=== PATIENT | female | born 1960 | race Caucasian/White ===

== ENCOUNTER 2020-05-29 08:52 | Outpatient (CLI) | payer OTHER, SELFPAY ==
--- NOTE | 2020-05-29 08:59 | ECG_ITS ---
Measurements Intervals [place] Rate: 68 P: 14 [place]: 156 QRS: 5 QRSD: 86 T: 43 QT: 417 QTc: 445 Interpretive Statements SINUS RHYTHM POOR R WAVE PROGRESSION, ANTERIOR LEADS BASELINE ARTIFACT- I, III, AVR, AVL, AVF BORDERLINE ECG Electronically Signed On 05-29-2020 10:48:36 [employer] by Evin Ball D.O.
[2020-05-29 09:54] LABS: Anion Gap 4 mmol/L (8-16); Blood Urea Nitrogen 16 mg/dL (7-17); Calcium 9.3 mg/dL (8.4-10.2); Carbon Dioxide 33 mmol/L (22-30); Chloride 101 mmol/L (98-107); Estimated Glomerular Filt Rate > 60; Glucose 99 mg/dL (65-105); Potassium 4.6 mmol/L (3.4-5.0); Sodium 138 mmol/L (137-145)
== END 2020-05-29 08:53 | disposition home or self-care (01) ==
PROVIDERS: Anesthesiology; PCP Nurse Practitioner Family; Visit Provider Orthopaedic Surgery
DX: Z01.818 Encounter for other preprocedural examination (principal); I10 Essential (primary) hypertension; Z79.899 Other long term (current) drug therapy; R94.31 Abnormal electrocardiogram [ECG] [EKG]
CPT/HCPCS: 36415; 80048; 93005

== ENCOUNTER 2020-06-03 00:53 | Outpatient (CLI) | payer OTHER, SELFPAY ==
[2020-06-03 19:31] LABS: SARS-CoV-2 RNA PCR Negative
== END 2020-06-03 00:54 | disposition home or self-care (01) ==
LOC: ANHCOVIDDT 00:54
PROVIDERS: Visit Provider Orthopaedic Surgery
DX: Z01.818 Encounter for other preprocedural examination (principal); Z20.828 Contact with and (suspected) exposure to other viral communicable diseases
CPT/HCPCS: 87635; C9803; U0003

== ENCOUNTER 2020-06-05 00:37 | Day surgery (SDC) | payer OTHER, SELFPAY ==
[2020-05-25 14:41] VITALS: BMI 31.2
[2020-06-05] VITALS (7 sets, daily range): BP systolic 121–145; BP diastolic 61–68; PULSE 78–104; RESP 16–19; TEMP 36.2–36.7; O2SAT 96–100; BMI 32.3
--- NOTE | 2020-06-05 07:14 | WPDANESEPPF ---
Anes - Initial Pre Proc Eval Procedure: Operation Date: 06/05/20 09:00 Proposed Procedures p Right Rotator Cuff Repair Acromioplasty, Distal Clavicle Excision - Moi De Santiago MD Date/Time: 06/05/20 07:14 Surgeon: Moi De Santiago MD Pre Op Diagnosis: Right Rotator Cuff Tear AC Arthritis Patient Data Age: 60 Gender: F Height: 1.55 m Weight: 75 kg Allergies Allergy/AdvReac Type Severity Reaction Status Date / Time No Known Allergies Allergy Verified 06/05/20 07:41 Home Medications Medication Instructions Recorded Confirmed Type biotin 300 mcg tablet 300 mcg PO DAILY 10/14/19 06/05/20 History escitalopram oxalate 10 mg tablet 10 mg PO DAILY 10/14/19 06/05/20 History estradiol 1 mg tablet 1 mg PO DAILY 10/14/19 06/05/20 History hydrochlorothiazide 25 mg tablet 25 mg PO DAILY 10/14/19 06/05/20 History omega-3 fatty acids 1,000 mg 1,000 mg PO DAILY 10/14/19 06/05/20 History capsule calcium carbonate 500 mg calcium 500 mg PO DAILY 05/23/20 06/05/20 History (1,250 mg) tablet tnmmtkkqnthy-dntkjklg-sjjpfu tablet 1 tablet PO DAILY 05/23/20 06/05/20 History Patient hx anesthesia problems: none Family hx anesthesia problems: none PMFSH Past Medical History Medical History (Updated 05/23/20 @ 15:52 by Moi De Santiago MD) Anxiety Dyslipidemia Surgical History Surgical History H/O: hysterectomy History of appendectomy History of cholecystectomy Family History Family History Mother Colon cancer Father Heart disease Malignant neoplasm of prostate Bone cancer Social History Social History Smoking packs per day: 0.5 Smoking cigarettes per day: 10.0 Years smoked: 5 Smoking pack-years: 2.50 Smoking status: Former smoker Tobacco type: cigarettes Smoking end date: 05/25/85 Alcohol intake: never Living arrangements: with family Additional living arrangements comments: [place] Additional occupation/education comments: [employer] [place] Gender identity (if verbalized by the patient): Female Spiritual care concerns: No Anes - Eval Final PreProcedure Day of Procedure 06/05/20 07:14 Patient weight: obese Heart: regular rate and rhythm Lungs: clear to auscultation and normal air movement Airway: Mallampati scale class II Neurological: alert and oriented Last oral intake: >/= 8 hours ASA classification: II Emergent: no Anesthetic plan: proceed Anesthesia type and monitoring: general ETT and standard monitoring Informed Consent: The patient's anesthetic plan and its attendant risks and benefits were discussed with the patient/family/POA. Questions were solicited and answers provided to the satisfaction of the patient/family/POA.
[2020-06-05] MEDS: ACETAMINOPHEN 500 MG TABLET 1000 MG PO (07:54)
[2020-06-05] MEDS: KETOROLAC 15 MG/ML VIAL (*BKC) IV PUSH (07:54)
[2020-06-05] MEDS: LACTATED RINGERS 1,000 ML 30 ML IV CONT ×2 (07:54→10:20)
--- NOTE | 2020-06-05 08:23 | WPDANESPNB ---
Anes - Peripheral Nerve Block Date/Time: 06/05/20 08:23 I have discussed with the patient/family/POA the placement of a peripheral nerve block for post-operative pain management, including associated risks, benefits, complications, and side effects. Alternative methods of post-operative analgesia were detailed. Questions were solicited and answers provided to the satisfaction of the patient/family/POA. Time-Out: A pre-procedural Time-Out was completed immediately before starting the procedure and confirmed: Patient Identification, Site, Procedure, Patient Position and the Availability of Requisite Equipment. Clinical Indications: Acute post-operative pain management requested by the operative surgeon. Nerve Block Insertion Note Anes-nerve block: interscalene right Patient position: supine Skin prep: chlorhexidine Needle: 22 gauge, stimulating, insulated echogenic needle. Needle length: 50 mm Technique: ultrasound Injectate: bupivacaine 0.5% with epi 5 mcg/ml (30cc) Observations: tolerated well Complications: none Procedure start time:: 857 Procedure end time:: 900
--- NOTE | 2020-06-05 09:00 | SUR.PREOP ---
pt receiving nerve block
--- NOTE | 2020-06-05 09:03 | WPDHPUPDATE1 ---
History and Physical Update Update Date/Time: 06/05/20 09:03 History and Physical has been reviewed, including an updated exam of the patient. There are NO changes in the patient's condition. Risks, benefits, and alternatives have been discussed and questions answered. Patient agrees to proceed with procedure.
[2020-06-05] MEDS: ceFAZolin 2 GM/D5W 50 ML 2 GM/50 ML BAG IVPB (09:06)
[2020-06-05] MEDS: LIDO 1%/EPINEPHRINE 1:100,000 50 ML VIAL 10 ML INFILTRATE (09:44)
--- NOTE | 2020-06-05 10:27 | PM.PROC ---
Procedure Note - Detailed Date of procedure: 06/05/20 Pre-op diagnosis: Right Rotator Cuff Tear AC Arthritis Post-op diagnosis: same Procedure performed: Right shoulder rotator cuff repair with acromioplasty and distal clavicle excision Description of procedure: Patient was identified and proper site identified. In the preop holding area the anesthesia team performed a right upper extremity block. She was then taken to the operating room and transferred to the or table taking care to pad the torso and extremities. After general anesthetic induction and intubation, she was put in a semi beach chair position in the usual manner for a right shoulder procedure. Her head was secured taking care to neither rotate nor extend the head and neck. The right upper extremity was prepped and draped free in usual sterile fashion. The subcutaneous tissue in the area of the incision was injected with 10 cc of 0.25% Marcaine and epinephrine solution. An oblique anterior incision was made extending from the AC joint distally in line with the fibers of the deltoid. Subcutaneous tissue was sharply dissected down to the deltoid fascia. The deltoid was dissected off the anterior portion of the acromion in the distal end of the clavicle. A 2 cm split was made at the junction between the anterior and middle thirds of the deltoid. Using the microsagittal saw the last 8 mm of clavicle removed. The saw was also used to perform the acromioplasty and then the undersurface of the acromion was rasped smooth. There was thickened bursa which was debrided from the rotator cuff allowing for complete inspection. There was a bulbous area of the supraspinatus corresponding to the MRI appearance of the calcific tendinitis and tendon degeneration. This was opened up longitudinally exposing the deeper fibers. There was chalky calcific material as well as degenerative tendon. This was all debrided. The rotator cuff attachment at the greater tuberosity was inspected and noted to be in good shape. The repair was carried out in a [id number] fashion with 2. Interrupted Ethibond suture. The wound was irrigated with sterile NaCl solution. The deltoid was repaired back to the acromion with 2. Ethibond suture passed through bone and the remainder of the deltoid repair carried out with 2. Vicryl. Subcutaneous tissue was reapproximated with 2-0 strata fix and three 0 V lock and then tissue adhesive used for the skin. Sterile dressing was applied. There were no known intraoperative complications, and perioperative antibiotics were administered. Anesthesia: ASHLEY Surgeon: Moi De Santiago MD Director Biostatistics: Mallika Rodarte Estimated blood loss (mL): 20 Drains: No Packing: No Pathology: none sent Complications: No immediate complications Condition: stable Disposition: PACU
== END 2020-06-05 12:31 | disposition home or self-care (01) ==
PROVIDERS: Visit Provider Orthopaedic Surgery
PROC: (CPT 23420; principal; 2020-06-05 09:00)
DX: M75.101 Unspecified rotator cuff tear or rupture of right shoulder, not specified as traumatic (principal); M19.011 Primary osteoarthritis, right shoulder; G89.18 Other acute postprocedural pain; E78.5 Hyperlipidemia, unspecified; F41.9 Anxiety disorder, unspecified; Z87.891 Personal history of nicotine dependence; E66.9 Obesity, unspecified; Z68.32 Body mass index [BMI] 32.0-32.9, adult
CPT/HCPCS: 23420; 23120; 64415; 36415; 80048; 93005; A4565; A9270; C9803; J0330; J0690; J1100; J1885; J2250; J2405; J2704; J3010; J7120; U0003